=== PATIENT | male | born 1990 | race Caucasian/White ===

== ENCOUNTER 2016-08-08 19:04 | Emergency (ER) | payer MEDICAID, OTHER ==
[~2016-08-08] VITALS: Ht 172.7 cm; Wt 109.1 kg
[2016-08-08 20:10] VITALS: Ht 172.7 cm; Wt 109.1 kg
[2016-08-08] MEDS ORDERED: ONDANSETRON (ODT) 4 MG TAB ODT STA (22:35)
[2016-08-08] MEDS ORDERED: HYDROCODONE/APAP (5/325) TAB PO ONE (23:00)
[2016-08-08] MEDS ORDERED: ONDA4TAB8 PO (23:25)
[2016-08-08] MEDS ORDERED: HYDR-906 PO (23:25)
[2016-08-08] MEDS ORDERED: IBUP-1542 PO (23:25)
[2016-08-08 23:33] VITALS: BP 135/86; PULSE 83; RESP 16
--- NOTE | 2016-08-08 23:33 | ERD ---
ER Documentation Chief Complaint Date/Time DATE: 08/08/16 TIME: 23:29 Chief Complaint AP W/ N/V X 3 HRS. HPI This is a 26-year-old male who presents to the emergency department today complaining of abdominal pain since 4 PM. Patient states he was walking to his boss after donating plasma and states he got abdominal pain and lightheaded and dizzy. States he had 2 bouts of vomiting. States he has eaten since then. States his last bowel movement was today. States he has a headache. States his stomach feels "cramping". States that he donates plasma 180 mL 1-2 times a week. Denies any fevers or chills, blurred vision, loss of consciousness. ROS All systems reviewed and are negative except as per history of present illness. Medications Home Meds Active Scripts Ibuprofen* (Motrin*) 600 Mg Tab, 600 MG PO Q6, #30 TAB Prov:ANG VOGT PA-C 08/08/16 Hydrocodone/Acetaminophen ([place] 5-325 Tablet) 1 Each Tablet, 1 TAB PO Q6H Y for PAIN, #10 TAB Prov:ANG VOGT PA-C 08/08/16 Ondansetron Hcl* (Zofran*) 4 Mg Tablet, 4 MG PO Q6H for NAUSEA AND/OR VOMITING, #30 TAB Prov:ANG VOGT PA-C 08/08/16 Allergies Allergies: Coded Allergies: No Known Allergy (Unverified , 08/08/16) PMhx/Soc Medical and Surgical Hx: pt denies Medical Hx Hx Alcohol Use: No Hx Substance Use: No Hx Tobacco Use: No Smoking Status: Never smoker Physical Exam Vitals Vital Signs Date Time Temp Pulse Resp B/P Pulse Ox O2 Delivery O2 Flow Rate FiO2 08/08/16 20:10 98.2 72 18 125/76 96 Physical Exam Const: Obese no acute distress Head: Atraumatic Eyes: Normal Conjunctiva ENT: Normal External Ears, Nose and Mouth. Neck: Full range of motion..~ No meningismus. Resp: Clear to auscultation bilaterally Cardio: Regular rate and rhythm, no murmurs Abd: Soft, mild left-sided upper and lower abdominal non distended. Normal bowel sounds. No right upper quadrant pain. No right lower quadrant pain. No tenderness McBurney's. Skin: No petechiae or rashes Back: No midline or flank tenderness Ext: No cyanosis, or edema Neur: Awake and alert. No focal neurologic deficits. No gait ataxia. Psych: Normal Mood and Affect Results 24 hrs Current Medications Medications (Trade) Dose Ordered Sig/Pato Route PRN Reason Start Time Stop Time Status Last Admin Dose Admin Ondansetron HCl (Zofran Odt) 4 mg ONCE STAT ODT 08/08/16 22:35 08/08/16 22:36 DC 08/08/16 23:09 Acetaminophen/ Hydrocodone Bitart ([place] (5/325)) 1 tab ONCE ONCE PO 08/08/16 23:00 08/08/16 23:01 DC 08/08/16 23:09 Procedures/MDM This is a 26-year-old male who presents the emergency department today with multiple complaints after donating plasma earlier today. Patient indicated that he donated approximately 180 mL and he does this 1-2 times a week. Patient states he last did this 3 days ago. Patient's physical exam is essentially benign. He had no loss of consciousness. He has no focal neurologic deficits and no gait ataxia and I do not feel the patient requires a head CT scan at this time. Low suspicion for acute hemorrhage, mass, abscess. Patient had some mild left-sided abdominal pain however no specific focal tenderness. No specific tenderness at McBurney's or in the right upper quadrant. Do not feel the patient requires laboratory workup or imaging at this time. Patient was in the exam room and had eaten half a bag of tortilla chips and drink some Gatorade. Patient's abdominal pain and dizziness likely related to his donation of plasma. He is afebrile and otherwise well-appearing. His vital signs are all within normal limits. Low suspicion for acute surgical abdomen. Low suspicion for aortic dissection. Patient was given [place] and Zofran here in the emergency department and symptoms significantly improved. He will be given a prescription for [place], Zofran and Motrin for home. Patient was instructed not to give plasma for the remainder of the week. At this time the patient is stable for discharge and outpatient management. Patient should follow up with their PCP in the next 1-2 days. They may return to the emergency department sooner for any persistent or worsening of symptoms. Patient understood and agreed with the plan. Discussed the patient with Dr. Mcclain and he does not feel the patient requires laboratory workup or imaging at this time and he has recommended that the patient be discharged. Departure Diagnosis: Primary Impression: Multiple complaints Condition: Fair Patient Instructions: Abdominal Pain, Understanding Dizziness, Balance Problems , and Fainting Referrals: your PCP Additional Instructions: Call your primary care doctor TOMORROW for an appointment during the next 1-2 days.See the doctor sooner or return here if your condition worsens before your appointment time. Do not do any plasma donation for the next week Take Zofran for any nausea or vomiting Take [place] for severe abdominal pain otherwise take Naprosyn or Tylenol or Motrin ANG VOGT PA-C August 08, 2016 23:33
== END 2016-08-08 23:37 | disposition home or self-care (01) ==
LOC: FTE 19:04
DX: R10.12 Left upper quadrant pain (principal); R10.31 Right lower quadrant pain; R42 Dizziness and giddiness; R51 Headache
CPT/HCPCS: Z7610 ×2; 99284

== ENCOUNTER 2017-11-04 17:43 | Emergency (ER) | END 2017-11-04 19:40 | disposition home or self-care (01) ==

== ENCOUNTER 2018-09-25 15:55 | Emergency (ER) | payer MEDICAID, OTHER ==
[~2018-09-25] VITALS: Ht 165.1 cm; Wt 126.5 kg
[~2018-09-25 15:55] MED LIST: CEPH-443 PO; HYDR-4011 PO; IBUP-1542 PO; NPH10OT RIGHT EAR; ONDA4TAB8 PO
[2018-09-25 16:30] VITALS: Ht 165.1 cm; Wt 126.5 kg
--- NOTE | 2018-09-25 17:44 | ERD ---
ER Documentation Chief Complaint Chief Complaint low back pain x6 days, worse w/walking HPI 28-year-old male, previously healthy, presents the emergency department, complaining of lower back pain for 6 days. The pain is worse by lateral rotation and flexion. No medications taken at this time for pain. He denies d istal weakness, numbness or tingling. No reports of fever, chills or rashes, no abdominal pain. ROS All systems reviewed and are negative except as per history of present illness. Medications Home Meds Active Scripts Baclofen* (Baclofen*) 10 Mg Tablet, 10 MG PO TID PRN for MUSCLE SPASMS, #15 TAB Prov:JUNIOR JIMENES MD 09/25/18 Acetaminophen* (Tylenol*) 325 Mg Tablet, 2 TAB PO Q6 PRN for PAIN AND OR ELEVATED TEMP, #20 TAB Prov:JUNIOR JIMENES MD 09/25/18 Ibuprofen* (Motrin*) 400 Mg Tab, 400 MG PO Q6H PRN for PAIN AND OR ELEVATED TEMP, #30 TAB Prov:JUNIOR JIMENES MD 09/25/18 Neomycin/Polymyxin/Hydrocort* (Cortisporin* Otic) 10 Ml Susp, 4 DROP RIGHT EAR QID for 7 Days, EA Prov:JUNIOR JIMENES MD 11/04/17 Cephalexin* (Keflex*) 500 Mg Capsule, 500 MG PO BID for 5 Days, CAP Prov:JUNIOR JIMENES MD 11/04/17 Ibuprofen* (Motrin*) 600 Mg Tab, 600 MG PO Q6, #30 TAB Prov:ANG VOGT PA-C 08/08/16 Hydrocodone/Acetaminophen ([place] 5-325 Tablet) 1 Each Tablet, 1 TAB PO Q6H PRN for PAIN, #10 TAB Prov:ANG VOGT PA-C 08/08/16 Ondansetron Hcl* (Zofran*) 4 Mg Tablet, 4 MG PO Q6H for NAUSEA AND/OR VOMITING, #30 TAB Prov:ANG VOGT PA-C 08/08/16 Allergies Allergies: Coded Allergies: No Known Allergy (Unverified , 08/08/16) PMhx/Soc Hx Miscellaneous Medical Probl: Yes (MORBID OBESE) Hx Alcohol Use: No Hx Substance Use: No Hx Tobacco Use: No FmHx Family History: diabetes; No coronary disease Physical Exam Vitals Vital Signs Date Temp Pulse Resp B/P (MAP) Pulse Ox O2 O2 Flow FiO2 Time Delivery Rate 09/25/18 98.0 82 18 151/100 98 16:30 (117) Physical Exam Patient is in no acute distress, vital signs stable. Alert and fully oriented. EYES: PERRLA, EOMI, Sclera and conjunctiva appear normal. EARS: Canals clear, tympanic membranes WNL THROAT: Normal oropharynx. NECK: Supple, No lymphadenopathy. Full ROM without pain or tenderness. HEART: RRR, no rubs, murmurs, clicks or gallops. LUNGS: Clear to auscultation. ABDOMEN: Soft, non-tender without masses or hepatosplenomegaly. EXTREMITIES: No edema bilaterally. BACK: Normal inspection, no bruises, no rashes, no deformity, decreased range of motion for lateral rotation and flexion. No vertebral tenderness, bilateral lower muscle spasm. NEURO: Cranial nerves grossly intact, no motor or sensory deficit Procedures/MDM At the time of discharge, patient nontoxic, ambulating, vital signs stable, no gross neurologic deficit. differential diagnosis include but not limited to: lumbar sprain/strain, sciatica, herniated disk, UTI less likely pyelo, kidney stone. Neurovascular exam grossly intact. no clinical findings suggestive of acute infectious process, no acute deformity, no edema, no rashes. Physical examination and clinical presentation consistent most likely with low back pain with sciatica. Treatment options and clinical impression discussed with the patient who agrees with management. The patient is stable to be treated outpatient and will be disc harged home with recommendations and close monitoring The patient was informed that the evaluation in the emergency department has been done to rule out an acute emergency, therefore, chronic conditions like malignancy or autoimmune diseases have not been evaluated; therefore, the patient was instructed to follow up with the primary care provider in the next 48h. If symptoms persist, worsen or new symptoms develop, then patient should return to the ED immediately. Instructions explained and given to patient with acknowledgment and demonstrated understanding. Disclaimer: Inadvertent spelling and grammatical errors are likely due to EHR/dictation software use and do not reflect on the overall quality of patient care. Also, please note that the electronic time recorded on this note does not necessarily reflect the actual time of the patient encounter. Departure Diagnosis: Primary Impression: Acute lumbar back pain Condition: Stable Additional Instructions: Thank you very much for allowing us to participate in your care. Your health and safety is our top priority at [facility]. The evaluation in the emergency department has been done to rule out an acute emergency. Chronic, [id number] conditions may have not been evaluated; therefore, you need to follow up with a primary care provider in the next 48h. If symptoms persist, worsen or new symptoms develop, then patient should return to the ED immediately. Call your primary care doctor TOMORROW for an appointment during the next 2-4 days and bring all the information provided. Have prescriptions filled and follow precisely the directions on the label. If the symptoms get worse and your provider is unavailable, return to the Emergency Department immediately. JUNIOR JIMENES MD Sep 25, 2018 17:44
[2018-09-25] MEDS ORDERED: ACET325T33 PO (18:03)
[2018-09-25] MEDS ORDERED: BACL10TA PO (18:03)
[2018-09-25] MEDS ORDERED: IBUP-1561 PO (18:03)
[2018-09-25 18:49] VITALS: BP 151/85; PULSE 78; RESP 18
== END 2018-09-25 18:50 | disposition home or self-care (01) ==
LOC: FTE 15:55
DX: M54.5 Low back pain (principal)
CPT/HCPCS: 99283

== ENCOUNTER 2018-11-09 19:48 | Emergency (ER) | payer OTHER ==
[~2018-11-09] VITALS: Ht 172.7 cm; Wt 81.0 kg
[~2018-11-09 19:48] MED LIST changes: +ACET325T33 PO; +BACL10TA PO; +IBUP-1561 PO
[2018-11-09 19:49] VITALS: BP 139/76; PULSE 69; RESP 18; Ht 172.7 cm; Wt 81.0 kg
[2018-11-09] MEDS ORDERED: KETOROLAC 30 MG INJ IM STA (20:21)
--- NOTE | 2018-11-09 20:37 | ERD ---
ER Documentation Chief Complaint Chief Complaint LEFT ANKLE PAIN AFTER ROLLING ON IT TODAY HPI 28-year-old male presented to ED for left ankle pain. Patient states he was out the yard doing a lot of yard work around 2 PM when he rolled his ankle. The patient did not feel a pop he has been able to ambulate since. But the patient states he still has pain and wants to get checked out. Patient denies any past medical history states he has no allergies to medication and is currently not taking any medications. Patient states the pain is a 6 out of 10 and is only on the lateral aspect of his left ankle. ROS All systems reviewed and are negative except as per history of present illness. Medications Home Meds Active Scripts Ibuprofen* (Motrin*) 600 Mg Tab, 600 MG PO Q6, #30 TAB Prov:ANA TREVIÑO PA-C 11/09/18 Baclofen* (Baclofen*) 10 Mg Tablet, 10 MG PO TID PRN for MUSCLE SPASMS, #15 TAB Prov:JUNIOR JIMENES MD 09/25/18 Acetaminophen* (Tylenol*) 325 Mg Tablet, 2 TAB PO Q6 PRN for PAIN AND OR ELEVATED TEMP, #20 TAB Prov:JUNIOR JIMENES MD 09/25/18 Ibuprofen* (Motrin*) 400 Mg Tab, 400 MG PO Q6H PRN for PAIN AND OR ELEVATED TEMP, #30 TAB Prov:JUNIOR JIMENES MD 09/25/18 Neomycin/Polymyxin/Hydrocort* (Cortisporin* Otic) 10 Ml Susp, 4 DROP RIGHT EAR QID for 7 Days, EA Prov:JUNIOR JIMENES MD 11/04/17 Cephalexin* (Keflex*) 500 Mg Capsule, 500 MG PO BID for 5 Days, CAP Prov:JUNIOR JIMENES MD 11/04/17 Ibuprofen* (Motrin*) 600 Mg Tab, 600 MG PO Q6, #30 TAB Prov:ANG VOGT PA-C 08/08/16 Hydrocodone/Acetaminophen ([place] 5-325 Tablet) 1 Each Tablet, 1 TAB PO Q6H PRN for PAIN, #10 TAB Prov:ANG VOGT PA-C 08/08/16 Ondansetron Hcl* (Zofran*) 4 Mg Tablet, 4 MG PO Q6H for NAUSEA AND/OR VOMITING, #30 TAB Prov:ANG VOGT PA-C 08/08/16 Allergies Allergies: Coded Allergies: No Known Allergy (Unverified , 08/08/16) PMhx/Soc Medical and Surgical Hx: pt denies Surgical Hx Hx Cardiac Disorders: Yes (HTN) Hx Miscellaneous Medical Probl: Yes (MORBID OBESE) Hx Alcohol Use: No Hx Substance Use: No Hx Tobacco Use: No Smoking Status: Never smoker FmHx Family History: No diabetes, No coronary disease, No other Physical Exam Vitals Vital Signs Date Temp Pulse Resp B/P (MAP) Pulse Ox O2 O2 Flow FiO2 Time Delivery Rate 11/09/18 98.0 69 18 139/76 97 19:49 (97) Physical Exam GENERAL: Moderate Distress CHEST: Clear to auscultation bilaterally. There are no rales, wheezes or rhonchi. HEART: Regular rate and rhythm. No murmurs, clicks, rubs or gallops. EXTREMITIES: mild swelling and deformity to left ankle, ROM non restricted,no signs of open fractures or exposure of soft tissue. No skin pallor noted. Patient has intact gross motor function and distal pulses are present and equal bilaterally. NEUROLOGIC: Motor strength is 5 out of 5 strength in left lower extremity sensation grossly intact. Results 24 hrs Current Medications Medications Dose Sig/Pato Start Time Status Last (Trade) Ordered Route PRN Stop Time Admin Dose Reason Admin Ketorolac 30 mg ONCE STAT 11/09/18 DC 11/09/18 Tromethamine IM 20:21 11/09/18 20:26 (Toradol) 20:23 Procedures/MDM ED course: The patient was stable throughout the ED course. The patient and/or family informed of laboratory and diagnostic imaging results throughout the ED course. Diagnostic imaging: Read by radiologist Dr. Wylie PROCEDURE: XR left Ankle. CLINICAL INDICATION: pain secondary to rolling left ankle TECHNIQUE: AP, oblique and lateral views of the left ankle were performed. COMPARISON: None. FINDINGS: No acute fracture identified. Alignment and mineralization are normal. Ankle mortise is intact. Joint spaces otherwise preserved. Soft tissues are unremarkable. IMPRESSION: Negative left ankle. Procedures: SPLINT APPLICATION: The patient was verbally consented at bedside prior to splint application. Patient was explained the risks, benefits and alternatives to this procedure. The patient was neurovascularly intact prior to and status post application of the splint. The patient tolerated the procedure well with no complications. Splint type: Wilian wrap Extremity: Left ankle Indication: High ankle sprain I discussed with the patient/family that at anytime if the splint becomes too constricted or if they have loss of sensation, or unable to move any limbs distal to the splint, develop fever, or any discomfort that they should eturn to the ER immdiatly. I educated the patient on risk of compartment syndrome with splint applications. Medications given in ER: Toradol Patient tolerated medication well with no adverse reactions. Patient reported improvement in pain. Medical decision makin-year-old male presented to ED for a left ankle injury. Physical exam noted tenderness to palpation to left lateral aspect of ankle. Patient had no pain on palpation in the forefoot, midfoot at this time I have low suspicion for navicular fracture, dislocation. The patient was given an injection for Toradol for pain and an x-ray of the lower extremity. X-ray indicated no fracture. Patient had good pulse motor sensation extremity and there is no signs of compartment syndrome. The mechanism of injury was low impact the patient was not running or jumping he simply rolled his ankle while walking. The patient physical exam showed no neurovascular deficits. The patient was placed in an Wilian wrap. Patient was offered crutches but refused states he has a cane and prefers to use that. The patient feels much better and comfortable with the Wilian wrap. I advised the patient that he needs to follow-up with his primary care provider in 1 to 2 days regarding this visit. I advised the patient that if the symptoms worsen or if he experiences extreme pain numbness tingling or any worsening symptoms he should return to ER immediately. Advised the patient to keep an eye out for symptoms of compartment syndrome. The patient is in agreement to the treatment plan. All questions were answered upon discharge Prescription for home: Motrin I have discussed with the patient proper use and common side effects to expert with the medication . I advised the patient/family to speak with the pharmacist dispensing the medication to be advised of any potential drug interactions with other medication or supplements they may be taking. Discharge: At this time, patient is stable for discharge and outpatient management. I have instructed the patient to follow-up with his\her primary care physician in 1 to 2 days. I have discussed with the patient the possibility of needing to see a specialist for further work-up and imaging studies if symptoms persist. I have instructed the patient to promptly return to the ER for any new or worsening symptoms including increased pain, fever, nausea, vomiting, weakness or LOC. The patient and\or family expressed understanding of and agreement with this plan. All questions were answered. Home care instructions were provided. Disclaimer: Inadvertent spelling and grammatical errors are likely due to EHR\dictation software use and do not reflect on the overall quality of patient care. Also, please note that the electronic time recorded on the note does not necessarily reflect the actual time of the patient encounter. Departure Diagnosis: Primary Impression: Ankle injury Encounter type: initial encounter Laterality: left Qualified Codes: S 99.912A - Unspecified injury of left ankle, initial encounter Additional Impression: High ankle sprain Encounter type: initial encounter Laterality: left Qualified Codes: S93.432A - Sprain of tibiofibular ligament of left ankle, initial encounter Condition: ANA Murrell PA-C Nov 09, 2018 20:37
== END 2018-11-09 20:31 | disposition home or self-care (01) ==
LOC: FTE 19:48
DX: S93.402A Sprain of unspecified ligament of left ankle, initial encounter (principal); I10 Essential (primary) hypertension; X50.1XXA Overexertion from prolonged static or awkward postures, initial encounter; Y92.9 Unspecified place or not applicable
CPT/HCPCS: 73610; 96372; J1885; Z7502